=== PATIENT | female | born 1965 | race Caucasian/White ===

== ENCOUNTER 2017-01-02 05:11 | Day surgery (SDC) | payer OTHER ==
[2016-12-22 13:09] VITALS: BMI 46.0
--- NOTE | 2016-12-22 13:44 | PAT Medication Instructions ---
Service Date December 22, 2016. Current Home Medication List Albuterol (Ventolin Hfa), 2 PUFFS PO QID PRN for allergies Bupropion HCl (Bupropion HCl Xl), 3 TABS PO QAM Cetirizine (Zyrtec), 10 MG PO QAM Cholecalciferol (Vitamin D), 1,000 INTER.UNIT PO QAM Cyclobenzaprine Hcl (Flexeril), 10 MG PO TID PRN for Muscle Spasms Dicyclomine Hcl (Dicyclomine), 20 MG PO QID PRN for ABDOMINAL PAIN Duloxetine HCl (Cymbalta), 30 MG PO QAM Duloxetine Hcl (Cymbalta), 60 MG PO QAM Eye Drops (Eye Drops), 1 DOSE OPB UD PRN for DRY EYES Fish Oil (Kinderhook-3), 1 CAP PO QAM Fluticasone Prop/Salmeterol (Advair Diskus 250/50 60 Dose), 1 PUFF INH BID Fluticasone Propionate (Nasal) (Flonase Allergy Relief), 2 SPRAYS PREM HS Gabapentin (Neurontin), 800 MG PO TID Lorazepam (Ativan), 0.5-1 TAB PO TID PRN for Anxiety Multivitamin (Multivitamin), 1 TAB PO QAM Naproxen Sodium (Naproxen Sodium), 500 MG PO BIDM Nortriptyline (Pamelor), 25 MG PO HS Omeprazole (Prilosec), 20 MG PO BID Ranitidine Hcl (Zantac), 300 MG PO HS Medication Instructions For Your Scheduled Surgery - Hold the following medications 2 weeks prior to surgery: Fish Oil (Kinderhook-3), 1 CAP PO QAM - Hold the following medications the morning of surgery: Cetirizine (Zyrtec), 10 MG PO QAM Multivitamin (Multivitamin), 1 TAB PO QAM Naproxen Sodium (Naproxen Sodium), 500 MG PO BIDM (otherwise okay to continue per surgeon) Cholecalciferol (Vitamin D), 1,000 INTER.UNIT PO QAM Cyclobenzaprine Hcl (Flexeril), 10 MG PO TID PRN for Muscle Spasms Dicyclomine Hcl (Dicyclomine), 20 MG PO QID PRN for ABDOMINAL PAIN - Take the following medications the morning of surgery with a sip of water OTHERWISE NOTHING TO EAT OR DRINK AFTER MIDNIGHT: Fluticasone Prop/Salmeterol (Advair Diskus 250/50 60 Dose), 1 PUFF INH BID Gabapentin (Neurontin), 800 MG PO TID Lorazepam (Ativan), 0.5-1 TAB PO TID PRN for Anxiety Omeprazole (Prilosec), 20 MG PO BID Duloxetine HCl (Cymbalta), 30 MG PO QAM Duloxetine Hcl (Cymbalta), 60 MG PO QAM Bupropion HCl (Bupropion HCl Xl), 3 TABS PO QAM Albuterol (Ventolin Hfa), 2 PUFFS PO QID PRN for allergies (use if needed; BRING TO HOSPITAL) Eye Drops (Eye Drops), 1 DOSE OPB UD PRN for DRY EYES - Take the following medications as scheduled the night before surgery: Nortriptyline (Pamelor), 25 MG PO HS Ranitidine Hcl (Zantac), 300 MG PO HS Fluticasone Prop/Salmeterol (Advair Diskus 250/50 60 Dose), 1 PUFF INH BID Gabapentin (Neurontin), 800 MG PO TID Lorazepam (Ativan), 0.5-1 TAB PO TID PRN for Anxiety Omeprazole (Prilosec), 20 MG PO BID Fluticasone Propionate (Nasal) (Flonase Allergy Relief), 2 SPRAYS PREM HS Albuterol (Ventolin Hfa), 2 PUFFS PO QID PRN for allergies Eye Drops (Eye Drops), 1 DOSE OPB UD PRN for DRY EYES Naproxen Sodium (Naproxen Sodium), 500 MG PO BIDM If you have any questions please call us at [phone] or [phone] or [phone]
[2016-12-22 15:00] LABS: BASO % 1.3 %; BASO ABS # 0.06 K/uL (0-0.2); COMPLETE YES; IG% 0.2 %; LYMPH % 30.3 %; LYMPH ABS # 1.41 K/uL (1.2-3.4); MEAN CELL VOLUME 88.5 fL (80-100); MEAN CORPUSCULAR HEMOGLOBIN 29.9 pg (25-34); MEAN CORPUSCULAR HGB CONC 33.8 g/dl (32-36); MEAN PLATELET VOLUME 10.1 fL (7.4-10.4); MONO % 9.4 %; NEUT % 55.8 %; PLATELET COUNT 233 K/uL (130-400); RED BLOOD COUNT 4.52 M/uL (4.2-5.4); WHITE BLOOD COUNT 4.66 K/uL (4.8-10.8)
[2016-12-22 15:09] LABS: BUN/CREATININE RATIO 21.4 (10-20); CREATININE 1.1 mg/dl (0.60-1.20); POTASSIUM 4.8 mmol/L (3.5-5.1)
[2016-12-22 15:18] LABS: CALCIUM 9.2 mg/dl (8.5-10.1)
--- NOTE | 2017-01-01 22:18 | HISTORY & PHYSICAL EXAMINATION ---
DATE OF ADMISSION: 01/02/2017 SUBJECTIVE AND CHIEF COMPLAINT: Left knee pain. HISTORY OF PRESENT ILLNESS: This is a patient who has been treated conservatively for a left knee injury. She was noted to have left knee osteoarthritis, so she was treated with knee bracing, physical therapy, corticosteroid injections, viscosupplement injections and rest; however, she has failed conservative management. She had an updated MRI of the left knee which noted lateral joint space osteoarthritis but also degenerative meniscus tear of the lateral knee as well as partial ACL tear and a Soler cyst. The patient is now being set up for a left knee arthroscopy. PAST MEDICAL HISTORY: Irritable bowel syndrome, fibromyalgia, polyarticular arthritis, Raynaud syndrome, anxiety and depression, asthma and seasonal allergies. PAST SURGICAL HISTORY: Tubal ligation, cystoscopy and endometrial cryoablation. CURRENT MEDICATIONS: Cymbalta 90 mg 1 p.o. daily, gabapentin 800 mg 1 p.o. t.i.d., Zantac 300 mg 1 p.o. at bedtime, Pamelor 25 mg 1 p.o. at bedtime, Ativan 0.5 mg 1/2-1 tablet t.i.d. p.r.n. anxiety, Flonase 50 mcg 2 sprays in each nostril daily, omega 3 fish oil 1000 mg 1 p.o. b.i.d., Bentyl 20 mg 1 p.o. q.i.d. p.r.n., Wellbutrin-XL 150 mg 3 tablets p.o. daily, Ventolin HFA 108 mcg 2 puffs q.i.d. p.r.n., Advair Diskus 1 puff b.i.d., Flexeril 10 mg one p.o. t.i.d. p.r.n., Prilosec 20 mg 1 p.o. b.i.d., Zyrtec 10 mg 1 p.o. daily, vitamin D 1000 units 2 p.o. daily, and multivitamin 1 p.o. daily. ALLERGIES: CLINORIL, OXYCODONE CAUSES NAUSEOUSNESS, DICLOFENAC, LEVOFLOXACIN, SAVELLA, SULFA AND TRAMADOL HAS THE ADVERSE REACTION OF LOSS OF CONCENTRATION. FAMILY HISTORY: Noncontributory. OBJECTIVE PHYSICAL EXAMINATION: GENERAL: The patient is alert and oriented x3. She is in no acute distress. She is a well-dressed, well-nourished 51-year-old female. Her affect is appropriate. CARDIOVASCULAR: Heart has a regular rhythm and rate without murmurs. Dorsalis pedis, posterior tib pulse +2/4. Cap refill is less than 2 seconds. LUNGS: Clear to auscultation bilateral. LYMPHATIC: No evidence of any swollen lymph nodes. MUSCULOSKELETAL: The patient has an antalgic gait favoring the left lower extremity. Upon inspection of the lower extremity, there is swelling noted of the left knee. There is a mild to moderate knee effusion. With palpation, she has tenderness at the lateral aspect of the joint. There is crepitation with passive and active range of motion. There is pain elicited with passive and active range of motion. She has decrease in strength secondary to pain within the left knee. SKIN: There are no scars, rashes or ulcers noted. NEUROLOGIC: Sensation normal and intact distally. X-RAY EXAM: MRI of the right knee was reviewed demonstrate severe osteoarthritis of the lateral compartment of the knee. There is a complex tear of the lateral meniscus. There is also degeneration of the medial meniscus and appears to be a chronic appearing complete tear of the ACL and there is a large multiloculated Soler cyst. ASSESSMENT AND DIAGNOSES: 1. Left knee lateral meniscus tear. 2. Chronic anterior cruciate ligament tear, left knee. 3. Osteoarthritis, left knee. 4. Soler cyst, left knee. PLAN: Above assessment was discussed with the patient. At this time it was recommended the patient undergo a left knee arthroscopy with partial lateral meniscectomy, possible partial medial meniscectomy, debridement of the ACL, synovectomy and an aspiration of Soler cyst. All potential risks, benefits, complications, alternatives and rehab have been discussed with the patient. At this time, she wishes to proceed with the surgery as indicated. She will be scheduled for the surgery on 01/02/2017.
[~2017-01-02] VITALS: Ht 162.6 cm; Wt 121.6 kg
[~2017-01-02 05:11] MED LIST: ADVIN25/60 INH; BUPR150T5 PO; CETI10TA84 PO; CHOL100010 PO; CYCL10TA6 PO; CYM/30 PO; DULO60CA44 PO; EYED OPB; FLUT0.15 NAE; GABA800T PO; LORA-741 PO; MULT-506 PO; NAPR-1007 PO; NORT25CA PO; OMEG10007 PO; PRLSR20 PO; PRVHFAIN PO; RANI300T2 PO; [UNRECOGNIZED DRUG - CODE] PO
[2017-01-02 05:39] VITALS: BP 116/80; PULSE 101; TEMP 36.7; O2SAT 95; Ht 162.6 cm; Wt 121.6 kg
[2017-01-02] MEDS ORDERED: CEFAZOLIN 3000 MG/65 ML D5W IV SCH (06:00)
[2017-01-02] MEDS ORDERED: LACTATED RINGER'S 1000ML 1,000 ML IV SCH (06:00)
[2017-01-02] MEDS ORDERED: LACTATED RINGER'S 1000ML 500 ML IV ONE (06:00)
[2017-01-02] MEDS ORDERED: MIDAZOLAM HCL 1 MG/ML 2ML VIAL ONE (07:00)
[2017-01-02] MEDS ORDERED: DEXAMETHASONE SOD INJ 4 MG/ML VIAL ONE (07:00)
[2017-01-02] MEDS ORDERED: ONDANSETRON INJ 2 MG/ML 2 ML VIAL ONE (07:00)
[2017-01-02] MEDS ORDERED: EpINEphrine HCL INJ 1 MG/ML 5ML SYRINGE ONE (07:00)
[2017-01-02] MEDS ORDERED: LIDOCAINE HCL 2% 2 ML VIAL (20MG/ML) ONE (07:00)
[2017-01-02] MEDS ORDERED: FENTANYL CITRATE INJ 50 MCG/1 ML 2 ML VIAL ONE (07:00)
[2017-01-02] MEDS ORDERED: PROPOFOL IV EMULSION 10 MG/ML 20 ML VIAL IV ONE (07:00)
[2017-01-02] MEDS ORDERED: BUPIVACAINE/EPINEPHRINE 0.5% MPF 1:200,000 30 ML VIAL ONE (07:00)
[2017-01-02] MEDS ORDERED: SCOPOLAMINE 1.5 MG TDSY TD ONE (07:01)
--- NOTE | 2017-01-02 07:31 | History & Physical Bridge Note ---
H&P Re-Evaluation Bridge Note: I have examined the patient, reviewed the History & Physical and in the interval since the performance of the History & Physical I have noted the following changes of clinical significance: No changes noted
[2017-01-02] MEDS ORDERED: PHENYLEPHRINE 100MCG/ML 5ML SYR IV PRN (07:45)
[2017-01-02] MEDS ORDERED: ATROPINE SULFATE 0.1 MG/ML 5ML SYR IV PRN (07:45)
[2017-01-02] MEDS ORDERED: EpHEDrine SULFATE INJ 50 MG/ML AMP IV PRN (07:45)
[2017-01-02] MEDS ORDERED: ONDANSETRON INJ 2 MG/ML 2 ML VIAL IV PRN (07:45)
[2017-01-02] MEDS ORDERED: HYDR-5688 PO (08:36)
--- NOTE | 2017-01-02 08:39 | Discharge Instructions ---
Discharge Instructions Date of Service Jan 02, 2017. Admission Reason for Admission: Left Knee Lateral Meniscal Tear, Acl,Tear,Solre Discharge Discharge Diagnosis / Problem: left knee lateral meniscus tear, ACL tear, knee osteoarthritis Discharge Goals Goal(s): Decrease discomfort, Improve function Activity Recommendations Activity Limitations: per Instructions/Follow-up section Weightbearing Status: Left weightbearing (as tolerated) . Instructions / Follow-Up Instructions / Follow-Up ACTIVITY RECOMMENDATIONS: * You may walk on the leg with or without crutches as comfort permits. * Bending of the knee should start at once. * Do not shower for 48 hours following surgery. SPECIAL CARE INSTRUCTIONS: * You may cleanse the skin adjacent to the small wounds with soap and water at the time of the first dressing change. * The application of an ice bag to the front and sides of the knee will decrease swelling and discomfort for the first 48 hours. * The small incisions may be sore and develop bruising. This bruising does not require any special care. SPECIAL PRECAUTIONS: * If you experience unusual pain unrelieved by prescriptions, temperature elevation (100 degrees F. or above) or progressive swelling or bleeding, you should contact our office at for further evaluation. * You may have been prescribed pain medication. If you experience nausea and/or fine skin rash, discontinue this medication and contact our office at for an alternate medication. DRESSING: * Dressing should be comfortable and absorb any leakage of fluid and/or blood. * The dressing may become moist or bloodstained. * Dressing may be removed 3 days after surgery and bandaids placed over the small surgical incisions. If can be removed sooner if it becomes very soiled or loose. * Bandaids may be used over next several days as needed and can be discontinued when there is not further drainage from the wounds. FOLLOW UP VISIT: If appointment is not already scheduled: Please call [facility] to make a follow-up appointment for 2 weeks after your surgery at . Current Hospital Diet Patient's current hospital diet: Discharge Diet Recommended Diet: Regular Diet Pending Studies Studies pending at discharge: no Medical Emergencies . Who to Call and When: Medical Emergencies: If at any time you feel your situation is an emergency, please call [phone] immediately. . Non-Emergent Contact Non-Emergency issues call your: Surgeon Call Non-Emergent contact if: temperature is above 101, your pain is not controlled, your pain is worsening, wound has increased drainage, wound has increased redness, wound has increased pain . "Provider Documentation" section prepared by Murray Luz. . VTE Core Measure Inpt VTE Proph given/why not?: Cory Gamez
[2017-01-02] MEDS ORDERED: HYDROCODONE/ACETAMOPHEN 5/325MG TAB PO PRN (08:45)
--- NOTE | 2017-01-02 08:57 | [facility] Post Operative Brief Note ---
Immediate Operative Summary Operative Date Jan 02, 2017. 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 Procedure(s) Performed Left Knee Arthroscopic Partial Lateral Menisectomy; Partial Medial Menisectomy; Synovectomy; Chondroplasty of medial femoral condyle, ACL Debridement, Removal of loose body [id number]; Aspiration Bakers Cyst Surgeon Dr. Rausch Monitoring Manager Surgeon(s) None Estimated Blood Loss 1 cc Findings See Dict Specimens None Drains None Anesthesia GLMA w/ local Complication(s) None Disposition Recovery Room / PACU
[2017-01-02] MEDS ORDERED: OXYCODONE/ACETAMINOPHEN 5-325 TAB PO PRN (09:00)
[2017-01-02] MEDS: HYDROmorphone INJ 2 MG/ML SYR/VIAL IV PRN ×2 (09:30→09:33)
--- NOTE | 2017-01-02 09:48 | OPERATIVE REPORT ---
DATE OF OPERATION: 01/02/2017 PREOPERATIVE DIAGNOSES: 1. Left knee lateral meniscus tear. 2. Degenerative changes lateral compartment. 3. Chronic tear anterior cruciate ligament. 4. Soler's cyst. POSTOPERATIVE DIAGNOSES: 1. Left knee lateral meniscus tear, extensive. 2. Medial meniscus tear. 3. Grade 3-4 degenerative joint disease lateral compartment. 4. 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 5. Chronic tear of the anterior cruciate ligament. 6. Loose body size 8 x 9 x 8 mm. 7. Synovitis. 8. Soler's cyst. PROCEDURES: 1. Left knee arthroscopy with partial lateral meniscectomy. 2. Partial medial meniscectomy 3. Removal of loose body size 8 x 9 x 8 mm. 4. Chondroplasty lateral femoral condyle. 5. Debridement of the anterior cruciate ligament. 6. Synovectomy. 7. Aspiration of Soler's cyst. SURGEON: Dr. Rausch. ROOM DESIGNER: None. ANESTHESIA: General LMA with local. SPECIMENS: None. DRAINS: None. COMPLICATIONS: None. BLOOD LOSS: 1 mL. PERTINENT HISTORY: This is a 51-year-old female with chronic progressive ongoing left knee pain, clicking, catching and weakness. She had attempted conservative management with physical therapy, home exercises, use of an assisted device, anti-inflammatory, steroid injections, rest and observation. She had radiograph and MRI which demonstrated narrowing of the lateral joint space with marginal osteophytes and MRI demonstrating a tear of the lateral meniscus with a popliteal cyst and chronic ACL tear. The patient was then scheduled for surgery as indicated. All potential risks, benefits, complications, alternatives, rehab, potential for incomplete relief of symptoms, need for further surgery, DVT, PE, , persistent pain, swelling, scarring, weakness, neurovascular injury, wound complications were discussed with the patient. The patient decided to proceed with the procedure as indicated. OPERATION AND FINDINGS: PROCEDURE: The patient was taken to the operative suite, placed supine on the operating room table. I reviewed consent, identification of proper operative site. The patient was anesthetized. LMA was placed. Tourniquet was placed high on the left thigh over cast padding. Left lower extremity was then sterilely prepped and draped in usual fashion, elevated and exsanguinated with Esmarch bandage, tourniquet inflated to 300 mmHg. Next, an 11 blade scalpel was used to make an incision anterolateral aspect of the knee joint, followed by placement of a blunt trocar and sleeve, camera and outflow. Superior and medial outflow cannula was established using an 11-blade scalpel incision followed by placement of an outflow cannula. Next, the inspection of the joint was then commenced in the suprapatellar pouch noting synovitis. Also noted was degenerative changes of the patellofemoral compartment with grade 2-3 chondromalacia of the patella and softening of the femoral trochlea. The medial gutter was inspected and noted to have synovitis. There was also noted to be a loose body size 8 x 9 x 8 mm. Next inspected was the medial compartment and there was noted to be a tear of the posterior horn and body of the medial meniscus. This extended into the white-white and red-white zone. Next, an 18 gauge spinal needle was used to localize the portal placement followed by 11-blade scalpel incision, followed by placement of a 4.5 mm full radius resector. Next, noted to be a grade 2-3 chondromalacia of the medial femoral condyle. Next, partial medial meniscectomy was then performed using a straight biter and then a 4.5 mm sucker shaver was then used to smooth and contour the medial meniscus. Next, the loose body was then grasped with a small grasper and then removed without difficulty. Next, the ACL and PCL were inspected. PCL was noted to be intact. ACL was noted to be torn. The stump proximally and distally were both debrided with a 4.5 mm sucker shaver. The lateral joint space was then inspected and noted to have grade 3-4 degenerative changes with bone on bone arthropathy of the tibia and the femur. There was noted to be small flap tears on the lateral femoral condyle. At this point, a chondroplasty was performed of the lateral femoral condyle. After this was completed, the lateral meniscectomy was then performed with a 4.5 mm sucker shaver. This was a large fibrillated tear which was extending from the posterior horn, body and extending to the anterior horn of the lateral meniscus which was then smoothed and contoured with the sucker shaver. Next, the lateral gutter was then inspected and noted to have synovitis. Synovectomy was performed with a 4.5 mm sucker shaver. Next, attention was then directed back towards the suprapatellar pouch at which point a 4.5 mm sucker shaver was then used to perform synovectomy. After this was completed, the joint was then lavaged until clear and all excess fluid was then expressed from the joint. Portal sites were then closed using interrupted 4-0 nylon sutures. The joint was then injected with 0.25% Marcaine with epinephrine 30 mL. Next, the limb was elevated. An 18 gauge spinal needle was then used to aspirate approximately 2 mL of synovial fluid from the Soler cyst without difficulty. Next, the sterile compressive dressing was applied overwrapped with an Tyrone wrap. Tourniquet was released. The patient was awakened and taken to recovery in stable condition. I attest to the content of the Intraoperative Record and any orders documented therein. Any exception s are noted below.
[2017-01-02 09:55] VITALS: BP 126/86; PULSE 99; TEMP 37; O2SAT 91
--- NOTE | 2017-01-02 10:55 | Anesthesiology Progress Note ---
Anesthesia Post Op Note Date & Time Jan 02, 2017 at 10:55 Vital Signs Pain Intensity: 1 Vital Signs Past 12 Hours Date Time Temp Pulse Resp B/P (MAP) Pulse Ox O2 Delivery O2 Flow Rate FiO2 01/02/17 09:55 37 99 16 126/86 91 Nasal Cannula 2 01/02/17 09:38 93 17 01/02/17 09:38 94 17 119/85 90 01/02/17 09:37 140/65 01/02/17 09:33 88 13 01/02/17 09:33 88 13 92 01/02/17 09:32 122/81 01/02/17 09:28 90 14 95 01/02/17 09:28 90 14 01/02/17 09:27 128/86 01/02/17 09:23 90 13 01/02/17 09:23 89 13 95 01/02/17 09:22 127/65 01/02/17 09:18 90 16 131/66 94 01/02/17 09:18 90 16 01/02/17 09:17 90 13 96 01/02/17 09:17 90 13 01/02/17 09:16 131/66 01/02/17 09:12 94 14 133/81 94 01/02/17 09:12 118 14 01/02/17 09:12 118 14 01/02/17 09:12 94 14 133/121 94 01/02/17 09:10 36.4 93 13 126/87 94 Nasal Cannula 2 01/02/17 09:07 92 11 01/02/17 09:07 92 11 01/02/17 09:07 92 11 126/87 95 01/02/17 09:07 92 11 126/87 95 01/02/17 09:02 97 19 01/02/17 09:02 97 19 01/02/17 09:02 96 19 122/88 94 01/02/17 09:02 96 19 122/88 94 01/02/17 08:57 94 15 96 01/02/17 08:57 94 15 96 01/02/17 08:57 95 15 01/02/17 08:57 95 15 01/02/17 08:56 95 13 132/89 97 01/02/17 08:56 94 13 01/02/17 08:51 100 18 96 01/02/17 08:51 100 18 01/02/17 08:48 108/78 01/02/17 08:46 101 97 01/02/17 08:46 36.2 102 16 108/78 97 Mask 10 01/02/17 08:46 101 01/02/17 05:39 36.7 101 18 116/80 (92) 95 Room Air Notes Mental Status: alert / awake / arousable, participated in evaluation Pt Amnestic to Procedure: Yes Nausea / Vomiting: adequately controlled Pain: adequately controlled Airway Patency, RR, SpO2: stable & adequate BP & HR: stable & adequate Hydration State: stable & adequate Anesthetic Complications: no major complications apparent
== END 2017-01-02 11:10 | disposition home or self-care (01) ==
LOC: C.ACU 05:11
PROVIDERS: ATTEND Orthopaedic Surgery Sports Medicine
DX: S83.282A Other tear of lateral meniscus, current injury, left knee, initial encounter (principal); S83.242A Other tear of medial meniscus, current injury, left knee, initial encounter; M71.22 Synovial cyst of popliteal space [Baker], left knee; X58.XXXA Exposure to other specified factors, initial encounter; M17.12 Unilateral primary osteoarthritis, left knee; M79.7 Fibromyalgia; I73.00 Raynaud's syndrome without gangrene; F32.9 Major depressive disorder, single episode, unspecified; J45.909 Unspecified asthma, uncomplicated

== ENCOUNTER 2017-09-03 11:33 | Emergency (ER) | payer OTHER ==
[~2017-09-03] VITALS: Ht 162.6 cm; Wt 123.1 kg
[2017-09-03 11:44] VITALS: Ht 162.6 cm; Wt 123.1 kg
[2017-09-03] MEDS ORDERED: LIFI5DRO OP (12:09)
[2017-09-03] MEDS ORDERED: DOXE10CA PO (12:09)
[2017-09-03] MEDS ORDERED: PREG75CA PO (12:09)
[2017-09-03] MEDS ORDERED: LSX20 PO (12:09)
[2017-09-03] MEDS ORDERED: DICY20TA10 PO (12:10)
[2017-09-03] MEDS ORDERED: CHOL1000 PO (12:10)
[2017-09-03] MEDS ORDERED: ORLI60CA2 PO (12:11)
[2017-09-03] MEDS ORDERED: KETOROLAC TROMETHAMINE 30 MG/ML VIAL IV STA (12:26)
[2017-09-03] MEDS ORDERED: METOCLOPRAMIDE HCL INJ 5 MG/ML 2 ML VIAL IV STA (12:26)
[2017-09-03] MEDS ORDERED: SODIUM CHLORIDE 0.9% 1000ML 1,000 ML IV STA (12:26)
[2017-09-03] MEDS ORDERED: DiphenhydrAMINE HCL 50 MG/ML VIAL IV STA (12:26)
--- NOTE | 2017-09-03 12:26 | EMERGENCY ROOM VISIT NOTE ---
History Report prepared by Eric: Andres Mao Under the Supervision of: Dr. Woo Flores M.D. First contact with patient: 12:14 Chief Complaint: SINUS CONGESTION/PRESSURE Stated Complaint: SICK, HEADACHE, SICK IN STOMACH Nursing Triage Summary: sinus headache, bilateral ear pain and pressure for 1 week History of Present Illness The patient is a 52 year old female who presents to the Emergency Room with complaints of persistent sinus "pressure" that she has been experiencing for the past week. The patient is also complaining of a headache and bilateral ear pain that onset at roughly the same time. The patient did not record any febrile temperatures, but notes she may have had a couple fevers. She denies any associated chest pain or shortness of breath. She also denies any abdominal pain, nausea, vomiting, or urinary symptoms. The patient has been taking Extra Strength Tylenol every 4 hours without any relief of her headache. She is not currently on blood thinners. Source of History: patient Onset: 1 week Position: other (Upper Sinus) Quality: pressure Timing: other (persistent) Associated Symptoms: + headache, No chest pain, No SOB, No nausea, No vomiting, No abdominal pain Review of Systems See HPI for pertinent positives and negatives. A total of ten systems were reviewed and were otherwise negative. Past Medical & Surgical Medical Problems: (1) Esophageal Reflux (2) Fibromyalgia (3) Leg pain (4) Vaginitis Surgical Problems: (1) History of reduction surgery of left breast Family History FH: diabetes mellitus Social History Smoking Status: Never Smoker Drug Use: none Marital Status: single Housing Status: lives alone Occupation Status: employed Current/Historical Medications Scheduled Bupropion HCl (Bupropion HCl Xl), 450 MG PO QAM Cetirizine (Zyrtec), 10 MG PO QAM Cholecalciferol (Vitamin D3), 1,000 UNITS PO DAILY Doxepin Hcl (Sinequan), 10 MG PO TID Duloxetine HCl (Cymbalta), 30 MG PO QAM Duloxetine Hcl (Cymbalta), 60 MG PO QAM Fluticasone Propionate (Nasal) (Flonase Allergy Relief), 2 SPRAYS PREM HS Lifitegrast (Xiidra), 1 DROP OP BID Multivitamin (Multivitamin), 1 TAB PO QAM Omeprazole (Prilosec), 20 MG PO BID Orlistat (Randolph), 60 MG PO TID Pregabalin (Lyrica), 75 MG PO BID Scheduled PRN Albuterol (Ventolin Hfa), 2 PUFFS PO QID PRN for allergies Cyclobenzaprine Hcl (Flexeril), 10 MG PO TID PRN for Muscle Spasms Dicyclomine Hcl (Dicyclomine Hcl), 20 MG PO QID PRN for ABDOMINAL PAIN Fluticasone Prop/Salmeterol (Advair Diskus 250/50 60 Dose), 1 PUFF INH BID PRN for SOB/Wheezing Furosemide (Furosemide), 1 DOSE PO UD PRN for FLUID RETENTION Lorazepam (Ativan), 0.5-1 TAB PO TID PRN for Anxiety Allergies Coded Allergies: Sulfa Drugs (Verified Allergy, Mild, hives, 09/03/17) Diclofenac (Verified Allergy, Unknown, HIVES, 09/03/17) Levofloxacin (Verified Allergy, Unknown, ARTHRALGIA, 09/03/17) Milnacipran (Verified Allergy, Unknown, NOSE BLEEDS/PASSES OUT, 09/03/17) Sulindac (Verified Allergy, Unknown, HIVES, 09/03/17) Oxycodone (Verified Adverse Reaction, Intermediate, nausea, 09/03/17) Tramadol (Verified Adverse Reaction, Intermediate, nausea, 09/03/17) Physical Exam Vital Signs Date Time Temp Pulse Resp B/P (MAP) Pulse Ox O2 Delivery O2 Flow Rate FiO2 09/03/17 14:49 36.5 81 18 114/76 95 09/03/17 13:29 36.5 78 18 113/68 93 Room Air 09/03/17 13:17 78 09/03/17 11:45 98 Room Air 09/03/17 11:44 37.2 90 20 140/88 98 Room Air Physical Exam GENERAL: Awake, alert, well-appearing, in no distress HENT: Normocephalic, atraumatic. Oropharynx unremarkable. Nasal turbinates. Mucous membranes are dry. EYES: Normal conjunctiva. Sclera non-icteric. NECK: Supple. No nuchal rigidity. FROM. No JVD. RESPIRATORY: Clear to auscultation. CARDIAC: Regular rate, normal rhythm. Extremities warm and well perfused. Pulses equal. ABDOMEN: Soft, non-distended. No tenderness to palpation. No rebound or guarding. No masses. RECTAL: Deferred. MUSCULOSKELETAL: Chest examination reveals no tenderness. The back is symmetrical on inspection without obvious abnormality. There is no CVA tenderness to palpation. No joint edema. LOWER EXTREMITIES: Calves are equal size bilaterally and non-tender. No edema. No discoloration. NEURO: Normal sensorium. No sensory or motor deficits noted. SKIN: No rash or jaundice noted. Medical Decision & Procedures ER Provider Diagnostic Interpretation: Radiology results as stated below per my review and radiologist interpretation: SINGLE VIEW CHEST CLINICAL HISTORY: Generalized abdominal pain. FINDINGS: An AP, portable, upright chest radiograph is compared to study dated 10/07/2015. The examination is degraded by portable technique and patient rotation. The cardiomediastinal silhouette is unremarkable. Chronic interstitial thickening is similar to previous. The lungs and pleural spaces are clear. No pneumothorax is seen. The bony thorax is grossly intact. Degenerative change is noted in the thoracic spine. IMPRESSION: No active disease in the chest. Electronically signed by: Issa Haley M.D. 09/03/2017 12:51 PM Dictated Date/Time: 09/03/2017 12:51 PM Laboratory Results 09/03/17 12:49 Red Blood Count 4.94, Mean Corpuscular Volume 86.6, Mean Corpuscular Hemoglobin 29.8, Mean Corpuscular Hemoglobin Concent 34.3, Mean Platelet Volume 10.4, Neutrophils (%) (Auto) 56.1, Lymphocytes (%) (Auto) 31.2, Monocytes (%) (Auto) 9.2, Eosinophils (%) (Auto) 2.9, Basophils (%) (Auto) 0.4, Neutrophils # (Auto) 2.68, Lymphocytes # (Auto) 1.49, Monocytes # (Auto) 0.44, Eosinophils # (Auto) 0.14, Basophils # (Auto) 0.02 09/03/17 12:49 Test 09/03/17 12:15 09/03/17 12:49 Influenza Type A Antigen Neg for Influ A (NEG) Influenza Type B Antigen Neg for Influ B (NEG) White Blood Count 4.78 K/uL (4.8-10.8) Red Blood Count 4.94 M/uL (4.2-5.4) Hemoglobin 14.7 g/dL (12.0-16.0) Hematocrit 42.8 % (37-47) Mean Corpuscular Volume 86.6 fL (80-100) Mean Corpuscular Hemoglobin 29.8 pg (25-34) Mean Corpuscular Hemoglobin Concent 34.3 g/dl (32-36) Platelet Count 221 K/uL (130-400) Mean Platelet Volume 10.4 fL (7.4-10.4) Neutrophils (%) (Auto) 56.1 % Lymphocytes (%) (Auto) 31.2 % Monocytes (%) (Auto) 9.2 % Eosinophils (%) (Auto) 2.9 % Basophils (%) (Auto) 0.4 % Neutrophils # (Auto) 2.68 K/uL (1.4-6.5) Lymphocytes # (Auto) 1.49 K/uL (1.2-3.4) Monocytes # (Auto) 0.44 K/uL (0.11-0.59) Eosinophils # (Auto) 0.14 K/uL (0-0.5) Basophils # (Auto) 0.02 K/uL (0-0.2) RDW Standard Deviation 42.8 fL (36.4-46.3) RDW Coefficient of Variation 13.6 % (11.5-14.5) Immature Granulocyte % (Auto) 0.2 % Immature Granulocyte # (Auto) 0.01 K/uL (0.00-0.02) Anion Gap 6.0 mmol/L (3-11) Est Creatinine Clear Calc Drug Dose 86.0 ml/min Estimated GFR () 76.3 Estimated GFR (Non- 65.9 BUN/Creatinine Ratio 16.1 (10-20) Calcium Level 9.6 mg/dl (8.5-10.1) Laboratory results reviewed by me Medications Administered Medications (Trade) Dose Ordered Sig/Beatrice Route Start Time Stop Time Status Last Admin Dose Admin Sodium Chloride 1,000 ml @ 999 mls/hr Q1H1M STAT IV 09/03/17 12:26 09/03/17 13:26 DC 09/03/17 13:08 999 MLS/HR Ketorolac Tromethamine (Toradol Inj) 15 mg NOW STAT IV 09/03/17 12:26 09/03/17 12:29 DC 09/03/17 13:09 15 MG Sodium Chloride (Heard Nasal [place]) 2 sprays NOW ONCE NA 09/03/17 12:30 09/03/17 12:31 DC 09/03/17 13:09 2 SPRAYS Metoclopramide HCl (Reglan Inj) 10 mg NOW STAT IV 09/03/17 12:26 09/03/17 12:29 DC 09/03/17 13:08 10 MG Diphenhydramine HCl (Benadryl Inj) 25 mg NOW STAT IV 09/03/17 12:26 09/03/17 12:29 DC 09/03/17 13:08 25 MG ED Course 1221: The patient was evaluated in room B9. A complete history and physical exam was performed. 1226: Ordered Benadryl Inj 25 mg IV, Reglan 10 mg IV, Toradol 15 mg IV, Sodium Chloride 1000 mL @ 999 mL/hr IV. 1230: Ordered Sodium Chloride 2 sprays, nasal. 1410: I reevaluated the patient. Discussed results and discharge instructions: She verbalized understanding and agreement. The patient is ready for discharge. Medical Decision I reviewed the patient's past medical history, medications, and the nursing notes as described above. Differential Diagnosis includes; URI, viral syndrome, influenza, dehydration, electrolyte imbalance, pneumonia, and bronchitis. The patient is a 52 y/o gentleman who presents to the emergency department with congestion, LAI and body aches per HPI. On arrival the patient is uncomfortable but in NAD, AFVSS. CTAB. Appears clinically dry. WBC 4.78 c/w patients viral syndrome. Otherwise labs unremarkable including Flu negative. Patient improved after IVF, reglan, toradol. Findings and plan for follow-up reviewed with patient. Patient agreeable and d/c'd per discharge instructions. Medication Reconcilliation Current Medication List: was personally reviewed by me Blood Pressure Screening Patient's blood pressure: Normal blood pressure Impression Primary Impression: Upper respiratory infection Scribe Attestation The scribe's documentation has been prepared under my direction and personally reviewed by me in its entirety. I confirm that the note above accurately reflects all work, treatment, procedures, and medical decision making performed by me. Departure Information Dispostion Home / Self-Care Referrals Raymond Carvajal M.D. (PCP) Patient Instructions ED Upper Resp Infec No Abx Tx, [facility] Additional Instructions Please follow up with your primary care physician in the next 1-3 days for re- evaluation. You likely have a viral upper respiratory infection. Otherwise, your exam, chest xray, and lab results did not show signs of an emergent condition at this time. Acetaminophen and ibuprofen for pain and fevers as needed. Mucinex (over the counter) as needed to help thin mucus. Saline nasal spray to help nasal congestion. Drink plenty of fluids to ensure hydration. Return to the emergency department for worsening symptoms as described in the accompanying instructions.
[2017-09-03] MEDS ORDERED: SODIUM CHLORIDE 0.65% NA SOLN 45 ML (OCEAN) ONE (12:30)
[2017-09-03 12:46] LABS: INFLUENZA B ANTIGEN Neg for Influ B (NEG)
--- NOTE | 2017-09-03 12:52 | DIAGNOSTIC IMAGING REPORT ---
SINGLE VIEW CHEST CLINICAL HISTORY: Generalized abdominal pain. FINDINGS: An AP, portable, upright chest radiograph is compared to study dated 10/07/2015. The examination is degraded by portable technique and patient rotation. The cardiomediastinal silhouette is unremarkable. Chronic interstitial thickening is similar to previous. The lungs and pleural spaces are clear. No pneumothorax is seen. The bony thorax is grossly intact. Degenerative change is noted in the thoracic spine. IMPRESSION: No active disease in the chest. Electronically signed by: Issa Haley M.D. 09/03/2017 12:51 PM Dictated Date/Time: 09/03/2017 12:51 PM
[2017-09-03 12:58] LABS: BASO % 0.4 %; BASO ABS # 0.02 K/uL (0-0.2); EOS % 2.9 %; EOS ABS # 0.14 K/uL (0-0.5); HEMATOCRIT 42.8 % (37-47); HEMOGLOBIN 14.7 g/dL (12.0-16.0); IG# 0.01 K/uL (0.00-0.02); LYMPH % 31.2 %; LYMPH ABS # 1.49 K/uL (1.2-3.4); MEAN CELL VOLUME 86.6 fL (80-100); MEAN CORPUSCULAR HEMOGLOBIN 29.8 pg (25-34); MEAN CORPUSCULAR HGB CONC 34.3 g/dl (32-36); MEAN PLATELET VOLUME 10.4 fL (7.4-10.4); MONO % 9.2 %; MONO ABS # 0.44 K/uL (0.11-0.59); NEUT % 56.1 %; NEUT ABS # 2.68 K/uL (1.4-6.5); PLATELET COUNT 221 K/uL (130-400); RED CELL DISTRIBUTION WIDTH CV 13.6 % (11.5-14.5); RED CELL DISTRIBUTION WIDTH SD 42.8 fL (36.4-46.3); WHITE BLOOD COUNT 4.78 K/uL (4.8-10.8)
[2017-09-03 13:15] LABS: CALCIUM 9.6 mg/dl (8.5-10.1); CREATININE 0.98 mg/dl (0.60-1.20); POTASSIUM 4.1 mmol/L (3.5-5.1)
[2017-09-03 14:49] VITALS: BP 114/76; PULSE 81; TEMP 36.5; O2SAT 95
== END 2017-09-03 14:30 | disposition home or self-care (01) ==
LOC: C.EDB 11:34
DX: J06.9 Acute upper respiratory infection, unspecified (principal); R11.0 Nausea; R51 Headache; M79.7 Fibromyalgia; Z79.899 Other long term (current) drug therapy